=== PATIENT | female | born 2000 | race African-American/Black ===

== ENCOUNTER 2024-01-24 16:30 | Emergency (ER) | payer OTHER, SELFPAY ==
--- NOTE | ~2024-01-24 | US_ITS ---
EXAMINATION: US ABDOMEN LIMITED CLINICAL INFORMATION: Pain. Evaluate CBD, gallbladder. COMPARISON: None available. TECHNIQUE: Real-time imaging of the right upper quadrant abdominal viscera. FINDINGS: GALLBLADDER:The gallbladder is physiologically distended without evidence of stones, sludge, polyps, wall thickening or pericholecystic fluid. Medical Superintendent notes no tenderness in the area of the gallbladder. COMMON BILE DUCT: Normal in caliber measuring 0.3 cm in diameter. US/US abdomen limited IMPRESSION: Gallbladder appears unremarkable. No evidence of gallstones or inflammatory changes. CBD is normal in caliber. Electronically signed by: Blake Young MD 01/24/2024 06:33 PM EDT RP
[2024-01-24 16:32] VITALS: BP 152/99; PULSE 92; RESP 19; TEMP 36.6; O2SAT 98; BMI 47.8
--- NOTE | 2024-01-24 16:33 | ED.GENADULT ---
HPI - General Adult General Chief complaint: Abdominal Pain Stated complaint: Abd pain Time Seen by Provider: 01/24/24 18:53 History of Present Illness ED Provider: Nitesh WILLARD narrative: The patient is a 24-year-old female comes to the emergency room for evaluation of right upper abdominal discomfort. She says that she first this kind of discomfort 1-2 months ago after having alcohol. She says that she had some discomfort for less than a day that resolved and she did not make much of it. She has had some alcohol intermittently over the last few days and she feels that she has been reliably provoking the abdominal discomfort when she uses alcohol. She had some alcohol yesterday and experienced the discomfort. The discomfort persisted throughout the morning. She had some nausea and she vomited once this morning she went to an urgent care center and was advised to come to the emergency room for evaluation of her gallbladder. No fever, sweats, chills. No urinary discomfort. No shortness of breath. The pain is not significantly worse with taking a deep breath. No pain or swelling in her legs. The patient is on no medications. Specifically she has been on no control or other hormonal medications. She says she has noticed that she has had high blood pressure readings recently. She goes to the [facility] in [place] for primary care. Related Data Previous Rx's ?Medication ?Instructions ?Recorded omeprazole 40 mg capsule,delayed 40 mg PO DAILY #30 caps 01/24/24 release Allergies Allergy/AdvReac Type Severity Reaction Status Date / Time No Known Allergies Allergy Verified 01/24/24 16:34 Review of Systems Review of Systems: Yes all other systems are reviewed and are negative [facility] Social History Social History Advance Directives: No Advance Directives Information Provided: No Physical Exam ED Vital Signs: Vital Signs - 24 hr 01/24/24 16:32 01/24/24 18:00 01/24/24 19:29 Temperature 98 F 98.3 F 98.4 F Pulse Rate 92 68 63 Respiratory Rate 19 20 Blood Pressure 152/99 H 142/78 H 119/71 Pulse Oximetry 98 99 100 Oxygen Delivery Method Room Air Room Air Room Air 01/24/24 20:00 01/24/24 20:41 Temperature 97.3 F 97.3 F Pulse Rate 58 58 Respiratory Rate 16 16 Blood Pressure 121/73 121/73 Pulse Oximetry 98 98 Oxygen Delivery Method Room Air Room Air BMI result Body Mass Index 47.8 Const Other: The patient is awake, alert, pleasant, cooperative. She does not appear in acute distress. She does not appear obviously acutely ill. HENMT Other: Face is symmetrical. Mucous membranes moist Eyes General: appearance normal, both eyes and all related structures Conjunctivae: conjunctivae normal EOM: EOMs intact bilaterally Neck Other: Moving her neck easily Resp Effort & Inspection: normal respiratory effort Auscultation: clear to auscultation bilaterally Cardio Rate: regular rate Rhythm: regular rhythm Heart sounds: S1 normal heart sound present and S2 normal heart sound present GI Other: Possibly some very mild right upper quadrant tenderness fairly far over on the right side just under the costal margin. No clear epigastric tenderness or clear Pollack's sign. No lower abdominal tenderness Skin Other: Skin is dry and unremarkable Neuro Other: The patient is awake and alert with a normal mental status. Cranial nerves are grossly intact. The patient moves extremities normally and seems grossly neurologically intact. Extrem Other: No calf asymmetry, tenderness, or edema. Course Course Course Narrative: RME, this is a rapid medical exam performed by Andrez Freedman please refer to primary provider for complete H&P- 24-year-old female presents for evaluation of right upper quadrant abdominal pain on and off for the last few months. She reports her pain has been more severe in consistent for the last few days. She was sent here from urgent care for further evaluation and management. Plan for labs, urinalysis, , and ultrasound of the right upper quadrant. Medications Administered Discontinued Medications Generic Name Dose Route Start Last Admin Trade Name Freq PRN Reason Stop Dose Admin Sucralfate 1 gm 01/24/24 19:05 01/24/24 19:43 Sucralfate Oral Suspension 1 Gm/10 Ml Oral.Susp PO 01/24/24 19:06 1 gm ONCE ONE Administration Medical Decision Making Medical Decision Making MDM Narrative: 24-year-old presents with intermittent right upper abdominal pain that seems to be triggered by alcohol use. Today she had persistent discomfort and also an episode of vomiting. She went to an urgent care and was advised to come to the emergency room for evaluation of her gallbladder. The gallbladder ultrasound is negative. Other labs are unremarkable. Her abdominal exam seems benign. I do not think she has a pulmonary source of her discomfort. She is not really describing any respiratory symptoms at all. The patient was given a dose of liquid sucralfate with improvement in her symptoms. She will be discharged with a prescription for omeprazole. She is advised to take a holiday from using alcohol. She should follow up with the regular doctor. I suspect she has some degree of gastritis. Lab Data 01/24/24 16:49 01/24/24 16:49 Labs: Lab Results 01/24/24 Range/Units 16:49 WBC 7.2 (4.8-10.8) X10*3/uL RBC 4.66 (4.20-5.50) X10*6/uL Hgb 12.9 (12.0-16.0) g/dl Hct 38.9 (37.0-47.0) % MCV 83.5 (80.0-98.0) fL MCH 27.7 (27.0-33.0) pg MCHC 33.2 (31.0-35.0) g/dl RDW 14.1 (11.0-16.0) % Plt Count 281 (160-400) X10*3/uL MPV 10.0 (9.4-12.3) fL Immature Gran % (Auto) 0.4 (0.0-0.4) % Neut % (Auto) 64.2 (45-73) % Lymph % (Auto) 25.7 (20-40) % [place] % (Auto) 8.3 (2-11) % Eos % (Auto) 0.8 (0-4) % Baso % (Auto) 0.6 (0-2) % Lymph # (Auto) 1.9 (1.2-4.9) X10*3/uL [place] # (Auto) 0.6 (0.1-1.2) X10*3/uL Eos # (Auto) 0.1 (0.0-0.4) X10*3/uL Baso # (Auto) 0.0 (0.0-0.2) X10*3/uL Abs Immat Gran (auto) 0.03 (0.00-0.03) X10*3/uL Absolute Neuts (auto) 4.7 (2.0-8.3) x10*3/uL Absolute Nucleated RBC 0.000 (0.0-0.012) X10*3/uL Nucleated RBC % (auto) 0.0 (0.0-0.2) /100WBC Sodium 136 (135-145) mmol/L Potassium 4.4 (3.3-5.1) mmol/L Chloride 105 (96-108) mmol/L Carbon Dioxide 25 (22-29) mmol/L Anion Gap 10 L (12-20) BUN 14 (9-16) mg/dL Creatinine 0.90 (0.5-1.4) mg/dL Estim Creat Clear Calc 121.3 Estimated GFR > 60 Random Glucose 112 (60-115) mg/dL Calcium 9.1 (8.4-10.2) mg/dL Total Bilirubin 0.3 (0.0-1.0) mg/dL AST 16 (5-31) U/L ALT 19 (0-31) U/L Alkaline Phosphatase 70 (39-117) U/L Total Protein 7.4 (6.5-8.0) g/dL Albumin 4.3 (3.5-5.0) g/dL Lipase 12 (8-78) U/L Beta HCG, Quant < 2 mIU/mL Urine Color Yellow Urine Appearance Clear Urine pH 6.5 (5.0-9.0) Ur Specific [place] 1.015 (1.005-1.025) Urine Protein Negative (Neg-Trace) mg/dL Urine Glucose (UA) Negative (Negative) mg/dL Urine Ketones Negative (Negative) mg/dL Urine Blood Negative (Negative) Urine Nitrite Negative (Negative) Ur Leukocyte Esterase Negative (Negative) Urine RBC 0-2 (0-2) /HPF Urine WBC 0-5 (0-5) /HPF Ur Squamous Epith Cells 0-2 (0-2) /HPF Urine Bacteria None Seen (None Seen) Hyaline Casts 0-2 (0-2) /LPF Discharge Plan Discharge Clinical Impression: Right upper quadrant abdominal pain Patient Disposition: Home, Self-Care Instructions: Gastritis (ED) Additional Instructions: I suspect that you may have a condition called gastritis. This is an irritation of the lining of the stomach related to stomach acid problems. Alcohol can be a trigger for gastritis. I have sent a prescription for an acid reducing medication to your pharmacy. This medication is called omeprazole. I would recommend taking this daily for a few weeks. I would avoid alcohol as well for a few weeks. Please follow up with your regular doctor's office to discuss this episode further. Return to the emergency room if you feel significantly worse. Prescriptions: New omeprazole 40 mg capsule,delayed release(DR/EC) 40 mg PO DAILY Qty: 30 0RF Referrals: Mohamud Land MD [Physician] - (gastritis) Interventions: ED Discharge Assessment Last Done: 01/24/24 20:41 Discharge Date/Time: 01/24/24 20:41 Print Language: Romanian
[2024-01-24 16:54] LABS: MANUAL DIFF FLAG NO
[2024-01-24 16:56] LABS: Appearance Urine Clear; Basophils Percent Auto 0.6 % (0-2); Color Urine Yellow; Eosinophils Absolute Auto 0.1 X10*3/uL (0.0-0.4); Eosinophils Percent Auto 0.8 % (0-4); Glucose Urine UA Negative (Negative); Hematocrit 38.9 % (37.0-47.0); Hemoglobin 12.9 g/dl (12.0-16.0); Imm Gran Abs Auto 0.03 X10*3/uL (0.00-0.03); Imm Gran Pct Auto 0.4 % (0.0-0.4); Leukocyte Esterase Urine Negative (Negative); Lymphocytes Absolute Auto 1.9 X10*3/uL (1.2-4.9); Lymphocytes Percent Auto 25.7 % (20-40); Mean Corpuscular HGB Conc 33.2 g/dl (31.0-35.0); Mean Corpuscular Hemoglobin 27.7 pg (27.0-33.0); Mean Corpuscular Volume 83.5 fL (80.0-98.0); Monocytes Absolute Auto 0.6 X10*3/uL (0.1-1.2); Monocytes Percent Auto 8.3 % (2-11); Neutrophils Absolute Auto 4.7 x10*3/uL (2.0-8.3); Neutrophils Percent Auto 64.2 % (45-73); Nitrite Urine Negative (Negative); PH 6.5 (5.0-9.0); Platelet Count 281 X10*3/uL (160-400); Red Blood Count 4.66 X10*6/uL (4.20-5.50); Red Cell Distribution Width 14.1 % (11.0-16.0); Specific Gravity - Urine 1.015 (1.005-1.025); Urine Blood Negative (Negative); Urine Ketones Negative (Negative); Urine Protein Negative (Neg-Trace); White Blood Count 7.2 X10*3/uL (4.8-10.8)
[2024-01-24 16:59] LABS: Bacteria Urine None Seen (None Seen); Hyaline Casts Urine 0-2 /LPF (0-2); RBC Urine 0-2 /HPF (0-2); Squamous Epithelial Cell Urine 0-2 /HPF (0-2); WBC Urine 0-5 /HPF (0-5)
[2024-01-24 17:19] LABS: Alanine Aminotransferase 19 U/L (0-31); Albumin Level 4.3 g/dL (3.5-5.0); Alkaline Phosphatase 70 U/L (39-117); Anion Gap 10 (12-20); Aspartate Amino Transferase 16 U/L (5-31); Bilirubin Total 0.3 mg/dL (0.0-1.0); Blood Urea Nitrogen 14 mg/dL (9-16); Calcium 9.1 mg/dL (8.4-10.2); Carbon Dioxide 25 mmol/L (22-29); Chloride 105 mmol/L (96-108); Creatinine Clr Calc Pharmacy 121.3; Estimated Glomerular Filt Rate > 60; Glucose Random 112 mg/dL (60-115); Lipase 12 U/L (8-78); Potassium 4.4 mmol/L (3.3-5.1); Sodium 136 mmol/L (135-145); Total Protein 7.4 g/dL (6.5-8.0)
[2024-01-24 17:20] LABS: HCG Quantitative < 2 mIU/mL
[2024-01-24 18:00] VITALS: BP 142/78; PULSE 68; TEMP 36.8; O2SAT 99
[2024-01-24 19:29] VITALS: BP 119/71; PULSE 63; RESP 20; TEMP 36.9; O2SAT 100
[2024-01-24] MEDS: Sucralfate Oral Suspension 1 GM/10 ML ORAL.SUSP PO (19:43)
[2024-01-24 20:00] VITALS: BP 121/73; PULSE 58; RESP 16; TEMP 36.3; O2SAT 98
[2024-01-24 20:41] VITALS: BP 121/73; PULSE 58; RESP 16; TEMP 36.3; O2SAT 98
== END 2024-01-24 20:41 | disposition home or self-care (01) ==
PROVIDERS: Physician Assistant; Emergency Provider Emergency Medicine
DX: R10.11 Right upper quadrant pain (principal); R10.2 Pelvic and perineal pain; Z79.899 Other long term (current) drug therapy
CPT/HCPCS: 36415; 76705; 80053; 81001; 83690; 84702; 85025; 99283; 99284